=== PATIENT | female | born 1975 | race Caucasian/White ===

== ENCOUNTER → 2024-04-14 09:03 | Outpatient (REF) | payer OTHER, SELFPAY | LOC: HWWDC 09:03 | PROVIDERS: ATTENDING PHYSICIAN Family Medicine | DX: Z12.31 Encounter for screening mammogram for malignant neoplasm of breast (principal) | CPT/HCPCS: 77063; 77067 ==

== ENCOUNTER 2024-12-25 12:56 | Emergency (ER) | payer OTHER, SELFPAY ==
[2024-12-25 12:59] VITALS: BP 148/95
--- NOTE | 2024-12-25 13:04 | ED.GENMED ---
ED Provider Triage
<Luisana Ramires PA-C - Last Filed: 12/25/24 20:46>
-
Patient seen by provider in Triage?: Seen in Triage
Attestation: A medical screening examination has been initiated by a qualified medical provider. Based on the assessment performed at this time, it has been determined that an emergent medical condition may exist and the patient has been informed
that further medical evaluation and possible additional diagnostic testing may be needed.
HPI: 49yoF here after a near syncopal episode at work. [place] clammy and lightheaded. EMS was called. Glucose 50 prehospital. Given oral glucose with improvement. Still feels weak and dizzy but improved. No prior history of diabetes.
GENERAL: Alert , in no apparent distress
EYE: No visual abnormalities.
NECK: Trachea midline
ENT: No visible abnormalities.
LUNGS: No acute respiratory distress
NEUROLOGICAL: Alert and oriented
SKIN: Skin intact. No visible changes.
MUSCULOSKELETAL: Moving extremities normally
PSYCH: Normal and appropriate interaction.
This is a medical evaluation conducted in person to initiate diagnostic evaluation and provide initial therapeutics. Please see further documentation by the treating clinician.
Will obtain repeat fingerstick glucose in triage. CBC, CMP, and EKG ordered.
History of Present Illness
<Luisana Ramires PA-C - Last Filed: 12/25/24 20:46>
General
Chief Complaint: Dizziness
Time Seen by Provider: 12/25/24 15:18
<Meenu George NP - Last Filed: 12/25/24 23:20>
General
Source: patient
Exam Limitations: none
Nursing documentation reviewed up to this point in time: agreed with
History of Present Illness
History of Present Illness:
Patient to ED with complaint of headache, dizziness, n/v. States she was sitting at work and developed sudden nonset of dizziness followed by n/v. States symptoms began to escalate, 911 was called by coworkers. States when EMS arrived she was
hypertensive and hypoglycemic. She was given dextrose and transported to ED. Reports dizziness with any movement. Constant headache. Denies fever but felt chilled. No sick contacts. No prior history of these symptoms. Denies any abdominal
pain.
Past History
<Luisana Ramires PA-C - Last Filed: 12/25/24 20:46>
Past History
ED Past Medical History: Psychiatric (Lexapro) and Other (kidney stones)
ED Past Surgical History: Cholecystectomy and Other (Gastric bypass 2011)
Social History
Tobacco: Non-smoker
Alcohol: Occasional
Personal:
Living: with family
Employment: Employed (Office work)
<Meenu George NP - Last Filed: 12/25/24 23:20>
Past History
ED Past Medical History: HTN
ED Past Surgical History: Gynecological (Hysterectomy)
Review of Systems
<Meenu George NP - Last Filed: 12/25/24 23:20>
Review of Systems
Allergies reviewed?: Yes
All Other Systems: ROS reviewed and negative except as documented in HPI and ROS
Constitutional: Reports chills
EENT: Reports no symptoms
Respiratory: Reports no symptoms
Cardiac: Reports no symptoms
ABD/GI: Reports nausea and vomiting
: Reports no symptoms
Musculoskeletal: Reports no symptoms
Skin: Reports no symptoms
Neurological: Reports dizzy and headache
Psychiatric: Reports no symptoms
Phy Exam
<Meenu George NP - Last Filed: 12/25/24 23:20>
General Physical Exam
General Presentation: well appearing and mild distress
General age: appears stated age
General Skin: warm and dry
General Habitus: normal
General Mental: alert
Cardiovascular Exam
Cardiovascular Exam: regular rate/rhythm and no edema
Pulmonary Exam
Pulmonary Exam: lungs clear and no respiratory distress
Gastrointestinal Exam
Gastrointestinal Exam: non tender, soft, no organomegaly and non distended
Neurological Exam
Neurological Exam: alert, oriented x3, CN II-XII intact, no motor deficits, no sensory deficits and speech normal
Musculoskeletal Exam
Musculoskeletal Exam: full ROM, no edema and neuro vasc intact
Skin Exam
Skin Exam: normal color, warm/dry and no rash
Psychiatric Exam
Psychiatric Exam: normal mood/affect
Course
<Luisana Ramires PA-C - Last Filed: 12/25/24 20:46>
Orders/Labs/Results
Orders:
Orders
12/25/24 13:05
Bedside Glucose- Treatment ONCE
12/25/24 13:06
Electrocardiogram (*1) Urgent
Reason for Study: Vertigo / Dizzy
EKG- Treatment ONCE
12/25/24 13:14
Complete Blood Count/With Diff Urgent
Comprehensive Metabolic Panel Urgent
12/25/24 15:28
CT Head W/o Iv Contrast Urgent
Comment:
Reason For Exam: pain, dizziness
0.9% Sodium Chloride 1000 ml [Nss] 1,000 ml IV BOLUS
Acetaminophen [Tylenol] 1,000 mg PO NOW STA
Meclizine [Antivert] 25 mg PO NOW STA
Ondansetron Injectable [Zofran] 4 mg IV NOW STA
12/25/24 16:20
COVID-19 Antigen Urgent
Source: Nasal Swab
Influenza A+B Rapid Molecular Urgent
JANINE Source: Nasal Swab
Specimen Description:
12/25/24 17:46
Urinalysis Reflex To Culture Urgent
Date Specimen was Collected: 12/25/24
Time Specimen was Collected: 17:43
Abnormal Lab Results
12/25/24 12/25/24 12/25/24
13:08 13:14 17:46
Absolute Neuts (auto) 6.6 H 10^3/uL
(1.4-6.5)
Absolute Lymphs (auto) 0.7 L 10^3/uL
(1.2-3.4)
Neutrophils % 85.8 H %
(42.2-75.2)
Lymphocytes % 9.1 L %
(20.5-51.1)
Glucose 163 H mg/dl
(70-99)
Urine Urobilinogen 2+ A
(Neg - 1+)
POC Glucose 153 H mg/dl
(70-99)
12/25/24 13:14
12/25/24 13:14
Vital Signs
Initial and Last Documented VS:
Initial Vital Signs
Temp Pulse Resp BP Pulse Ox
97.8 F 75 16 148/95 99
12/25/24 12:59 12/25/24 12:59 12/25/24 12:59 12/25/24 12:59 12/25/24 12:59
Last Documented Vital Signs
Temp Pulse Resp BP Pulse Ox
97.8 F 78 18 145/95 97
12/25/24 12:59 12/25/24 20:31 12/25/24 20:31 12/25/24 20:31 12/25/24 20:31
Lynnelt;Meenu George NP - Last Filed: 12/25/24 23:20>
Orders/Labs/Results
Orders:
Orders
12/25/24 13:05
Bedside Glucose- Treatment ONCE
12/25/24 13:06
Electrocardiogram (*1) Urgent
Reason for Study: Vertigo / Dizzy
EKG- Treatment ONCE
12/25/24 13:14
Complete Blood Count/With Diff Urgent
Comprehensive Metabolic Panel Urgent
12/25/24 15:28
CT Head W/o Iv Contrast Urgent
Comment:
Reason For Exam: pain, dizziness
0.9% Sodium Chloride 1000 ml [Nss] 1,000 ml IV BOLUS
Acetaminophen [Tylenol] 1,000 mg PO NOW STA
Meclizine [Antivert] 25 mg PO NOW STA
Ondansetron Injectable [Zofran] 4 mg IV NOW STA
12/25/24 16:20
COVID-19 Antigen Urgent
Source: Nasal Swab
Influenza A+B Rapid Molecular Urgent
JANINE Source: Nasal Swab
Specimen Description:
12/25/24 17:46
Urinalysis Reflex To Culture Urgent
Date Specimen was Collected: 12/25/24
Time Specimen was Collected: 17:43
Abnormal Lab Results
12/25/24 12/25/24 12/25/24
13:08 13:14 17:46
Absolute Neuts (auto) 6.6 H 10^3/uL
(1.4-6.5)
Absolute Lymphs (auto) 0.7 L 10^3/uL
(1.2-3.4)
Neutrophils % 85.8 H %
(42.2-75.2)
Lymphocytes % 9.1 L %
(20.5-51.1)
Glucose 163 H mg/dl
(70-99)
Urine Urobilinogen 2+ A
(Neg - 1+)
POC Glucose 153 H mg/dl
(70-99)
12/25/24 13:14
12/25/24 13:14
Vital Signs
Initial and Last Documented VS:
Initial Vital Signs
Temp Pulse Resp BP Pulse Ox
97.8 F 75 16 148/95 99
12/25/24 12:59 12/25/24 12:59 12/25/24 12:59 12/25/24 12:59 12/25/24 12:59
Last Documented Vital Signs
Temp Pulse Resp BP Pulse Ox
97.8 F 78 18 145/95 97
12/25/24 12:59 12/25/24 20:31 12/25/24 20:31 12/25/24 20:31 12/25/24 20:31
<Meenu George NP - Last Filed: 12/25/24 23:20>
*Radiology
Radiology exam reviewed: radiology read reviewed
*Pulse Oximetry
Patient hypoxic: no
*Critical Care Note
Total Time (30-74mins, 75-104mins- exclusive of procedures): Not Applicable
<Meenu George NP - Last Filed: 12/25/24 23:20>
Update Note
Update Note:
Improved with IVF, meclazine. Labs and CT results reviewed with her. No concerning findings. Normal exam. Will discharge home. Given rx for meclazine and zofran. WIll followup with PCP in AM. Given instructions on s/s to return to ED and she
is agreeable to plan.
ED Attending Note
<Luisana Ramires PA-C - Last Filed: 12/25/24 20:46>
-
Portions of this chart may have been created with voice recognition software.� Occasional wrong word or��sound alike� substitutions may have occurred due to the inherent limitations of voice recognition software.
Discharge Plan
Departure
Patient Disposition: Home (Routine Discharge)
Date of Disposition: 12/25/24
Time of Disposition: 19:49
Patient with high blood pressure during this ER visit?: No
Condition: Good
Covid-19: Not Applicable
Discharge Problem:
Vertigo
Instructions: Vertigo (a Type of Dizziness) (DC)
Prescriptions:
New
meclizine 25 mg tablet
25 mg PO TID PRN (Reason: dizziness) Qty: 20 0RF
ondansetron 4 mg tablet,disintegrating
4 mg PO TID PRN (Reason: nausea and vomiting) 4 Days Qty: 12 0RF
No Action
cephalexin 500 MG capsule
500 mg PO QID Qty: 28 0RF
hydrocodone-acetaminophen 1 TABLET tablet
1 tab PO Q4HPRN PRN (Reason: pain ) Qty: 10 0RF
hydrocodone-acetaminophen 1 TABLET tablet
1 tab PO Q4HPRN PRN (Reason: pain) Qty: 15 0RF
tamsulosin 0.4 MG capsule
0.4 mg PO DAILY Qty: 5 0RF
Referrals:
Priyanka Melendez DO [Family Provider] - Tomorrow
Stand Alone Forms: Return to Work
Activity Restrictions/Additional Instructions:
Return to the emergency department immediately for any changes in/worsening of your symptoms.
Interventions
Interventions:
*Risk Screen - Suicide Last Done: 12/25/24 12:59
*General Assessment Last Done: 12/25/24 12:59
*Neglect/Abuse Screening Last Done: 12/25/24 12:59
ED- Fall Risk Assessment Last Done: 12/25/24 16:00
*ED COVID-19 Vaccine History Last Done: 12/25/24 12:59
*Nursing Disposition Last Done: 12/25/24 20:31
ED- Cardiac Assessment Last Done: 12/25/24 16:00
ED- Neurological Assessment Last Done: 12/25/24 16:00
ED Swallowing Screen Last Done: 12/25/24 16:00
Discharge Date and Time
Discharge Date/Time: 12/25/24 20:32
Print Language: ERITREAN
[2024-12-25 13:10] LABS: Glucose - Point of Care 153 mg/dl (70-99)
[2024-12-25 13:29] LABS: % Basophils 0.4 % (0-2); % Immature Granulocytes 0.1 % (0-0.5); % Lymphocytes 9.1 % (20.5-51.1); % Monocytes 3.6 % (1.7-9.3); % Neutrophils 85.8 % (42.2-75.2); Absolute Eosinophils 0.1 10^3/uL (0-0.7); Absolute Lymphocytes 0.7 10^3/uL (1.2-3.4); Absolute Monocytes 0.3 10^3/uL (0.1-0.6); Absolute Neutrophils 6.6 10^3/uL (1.4-6.5); Hematocrit 43.8 % (37.0-47.0); Hemoglobin 15.1 g/dL (12.0-16.0); Mean Corp Hgb Conc. 34.5 g/dL (33.0-37.0); Mean Corpuscular Hgb 29.5 pg (27.0-31.0); Mean Corpuscular Volume 85.7 fL (81.0-99.0); Mean Platelet Volume 9.8 fL (7.4-10.4); Nucleated Red Blood Cells % 0 %; Platelet Count 279 10^3/uL (130-400); Red Blood Cell Count 5.11 10^6/uL (4.20-5.40); Red Cell Dist. Width 13.6 % (11.5-14.5); White Blood Cell Count 7.7 10^3/uL (4.8-10.8)
[2024-12-25 13:43] LABS: ALT (SGPT) 21 U/L (0-35); AST (SGOT) 25 U/L (14-36); Albumin 4.8 g/dl (3.5-5.0); Alkaline Phosphatase 72 U/L (38-126); Blood Urea Nitrogen 8 mg/dl (7-17); Carbon Dioxide 26 mmol/L (22-30); Chloride 100 mmol/L (98-107); Glucose 163 mg/dl (70-99); Potassium 4.5 mmol/L (3.5-5.1); Sodium 135 mmol/L (135-145); Total Protein 7.5 g/dl (6.3-8.2); eGFR > 60.00
[2024-12-25] MEDS: ANTIVERT 25 MG PO (16:02)
[2024-12-25] MEDS: TYLENOL 1000 MG PO (16:02)
[2024-12-25] MEDS: NSS 1000 IV (16:02)
[2024-12-25] MEDS: ZOFRAN 4 MG IV (16:03)
[2024-12-25 16:37] VITALS: BP 150/98
[2024-12-25 16:48] LABS: COVID-19 Antigen Negative (Negative)
[2024-12-25 18:00] VITALS: BP 149/94
[2024-12-25 18:06] LABS: Urine Albumin Negative (Neg - Trace); Urine Bilirubin Negative (Negative); Urine Character Clear (Clear); Urine Color Yellow; Urine Glucose Negative (Negative); Urine Ketone Negative (Negative); Urine Leukocyte Negative (Negative); Urine Nitrite Negative (Negative); Urine Occult Blood Negative (Negative); Urine Specific Gravity 1.015 (<1.030); Urine Urobilinogen 2+ (Neg - 1+)
[2024-12-25 20:31] VITALS: BP 145/95
== END 2024-12-25 20:32 | disposition home or self-care (01) ==
LOC: EMR 12:56
PROVIDERS: Nurse Practitioner; Physician Assistant; EMERGENCY PHYSICIAN Student in an Organized Health Care Education/Training Program; FAMILY PHYSICIAN Family Medicine
DX: R55 Syncope and collapse (principal); I10 Essential (primary) hypertension; Z87.442 Personal history of urinary calculi; Z90.49 Acquired absence of other specified parts of digestive tract; Z90.710 Acquired absence of both cervix and uterus; Z98.84 Bariatric surgery status
CPT/HCPCS: 99284; 96374; 70450; 80053; 81003; 82962; 85025; 87502; 87811; 93005

== ENCOUNTER → 2025-08-24 14:44 | Outpatient (REF) | payer OTHER, SELFPAY | LOC: WDC 14:44 | PROVIDERS: ATTENDING PHYSICIAN Family Medicine | DX: Z12.31 Encounter for screening mammogram for malignant neoplasm of breast (principal) | CPT/HCPCS: 77063; 77067 ==